=== PATIENT | female | born 1995 | race American Indian/Alaskan Native ===

== ENCOUNTER 2016-07-08 13:31 | Observation (INO) | payer MEDICAID, OTHER ==
[2016-07-08 14:19] LABS: Basophils % (Auto) 0.2 % (0.0-1.8); Eosinophils % (Auto) 0.3 % (0.0-4.3); Hematocrit 39.9 % (30.3-42.9); Hemoglobin 12.8 gm/dl (10.1-14.3); Mean Corpuscular HGB Conc 32 % (30-34); Mean Corpuscular Hemoglobin 28 pg (28-32); Mean Corpuscular Volume 86 fl (79-97); Platelet Count 282 K/mm3 (140-440); Red Blood Count 4.65 M/mm3 (3.65-5.03); Red Cell Distribution Width 14.1 % (13.2-15.2); White Blood Count 16.9 K/mm3 (4.5-11.0)
[2016-07-08 14:26] LABS: Alanine Aminotransferase 7 units/L (7-56); Albumin/Globulin Ratio 1.1 %; Alkaline Phosphatase 36 units/L (35-129); Anion Gap 18 mmol/L; BUN/Creatinine Ratio 11.66; Bilirubin,Total < 0.20 mg/dL (0.1-1.2); Blood Urea Nitrogen 7 mg/dL (7-17); Carbon Dioxide 24 mmol/L (22-30); Glucose 94 mg/dL (65-100); Lipase 14 units/L (13-60); Potassium 4.1 mmol/L (3.6-5.0); Sodium 139 mmol/L (137-145); Total Protein 7.6 g/dL (6.3-8.2)
[2016-07-08 15:05] LABS: Bilirubin,Urine NEG (Negative); Blood,Urine NEG (Negative); Ketones,Urine NEG (Negative); Leukocyte Esterase,Urine NEG (Negative); Mucus,Urine FEW /HPF; Nitrite,Urine NEG (Negative); Protein,Urine <15 mg/dL mg/dL (Negative); Urobilinogen,Urine < 2.0 mg/dL (<2.0); WBC,Urine < 1.0 /HPF (0.0-6.0)
--- NOTE | 2016-07-08 15:59 | Emergency Department Report ---
ED Abdominal Pain HPI - General Chief Complaint: Abdominal Pain Stated Complaint: HERNIA Time Seen by Provider: 07/08/16 15:47 Source: patient Mode of arrival: Ambulatory Limitations: No Limitations - History of Present Illness Initial Comments: Patient comes in the ER today with complaints of right lower quadrant abdominal pain. Patient states that she has had some discomfort in that area for several weeks now but today approximately 5-6 hours ago she started with a lot more intense pain in the right lower quadrant. Patient denies any vomiting, diarrhea but she does say that she feels like she is running a fever and she has not eaten anything all day. Patient denies any past history of abdominal surgeries. Patient has not taken anything for her symptoms as of yet. MD Complaint: abdominal pain - Related Data Previous Rx's Medication Instructions Recorded Last Taken Type Ibuprofen [Motrin] 400 mg PO TID PRN #15 tablet 03/27/13 Unknown Rx Allergies Allergy/AdvReac Type Severity Reaction Status Date / Time No Known Allergies Allergy Unverified 03/27/13 10:27 ED Review of Systems ROS: Stated complaint: HERNIA Other details as noted in HPI Constitutional: denies: chills, fever Eyes: denies: eye pain, eye discharge, vision change ENT: denies: ear pain, throat pain Respiratory: denies: cough, shortness of breath, wheezing Cardiovascular: denies: chest pain, palpitations Endocrine: no symptoms reported Gastrointestinal: abdominal pain, nausea. denies: vomiting, diarrhea, constipation, hematemesis, melena, hematochezia Genitourinary: denies: urgency, dysuria, hematuria, discharge, abnormal menses Musculoskeletal: denies: back pain, joint swelling, arthralgia Skin: denies: rash, lesions Neurological: denies: headache, weakness, paresthesias Psychiatric: denies: anxiety, depression Hematological/Lymphatic: denies: easy bleeding, easy bruising ED Past Medical Hx - Past Medical History Previous Medical History?: No - Surgical History Past Surgical History?: No - Social History Smoking Status: Never Smoker Substance Use Type: Non Opiate Pain - Medications Home Medications: Home Medications Medication Instructions Recorded Confirmed Last Taken Type Ibuprofen [Motrin] 400 mg PO TID PRN #15 tablet 03/27/13 Unknown Rx ED Physical Exam - General Limitations: No Limitations General appearance: alert, in no apparent distress - Head Head exam: Present: atraumatic, normocephalic - Eye Eye exam: Present: normal appearance - ENT ENT exam: Present: normal exam, normal orophraynx, mucous membranes moist - Neck Neck exam: Present: normal inspection - Respiratory Respiratory exam: Present: normal lung sounds bilaterally. Absent: respiratory distress, wheezes, rales, rhonchi - Cardiovascular Cardiovascular Exam: Present: regular rate, normal rhythm. Absent: systolic murmur, diastolic murmur, rubs, gallop - GI/Abdominal GI/Abdominal exam: Present: soft, tenderness (right lower quadrant abdominal tenderness), normal bowel sounds, hernia (small umbilical hernia, reducible and nontender). Absent: distended, guarding, rigid, organomegaly, pulsatile mass - Extremities Exam Extremities exam: Present: normal inspection - Back Exam Back exam: Present: normal inspection - Neurological Exam Neurological exam: Present: alert, oriented X3 - Psychiatric Psychiatric exam: Present: normal affect, normal mood - Skin Skin exam: Present: warm, dry, intact, normal color. Absent: rash ED Course Vital Signs 07/08/16 13:51 Temperature 98.7 F Pulse Rate 79 Respiratory 16 Rate Blood Pressure 133/95 O2 Sat by Pulse 100 Oximetry ED Medical Decision Making - Lab Data Result diagrams: 07/08/16 13:57 07/08/16 13:57 Lab Results 07/08/16 07/08/16 07/08/16 Range/Units 13:57 13:57 14:23 WBC 16.9 H (4.5-11.0) K/mm3 RBC 4.65 (3.65-5.03) M/mm3 Hgb 12.8 (10.1-14.3) gm/dl Hct 39.9 (30.3-42.9) % MCV 86 (79-97) fl MCH 28 (28-32) pg MCHC 32 (30-34) % RDW 14.1 (13.2-15.2) % Plt Count 282 (140-440) K/mm3 Lymph % (Auto) 13.7 (13.4-35.0) % [place] % (Auto) 7.0 (0.0-7.3) % Eos % (Auto) 0.3 (0.0-4.3) % Baso % (Auto) 0.2 (0.0-1.8) % Lymph # 2.3 (1.2-5.4) K/mm3 [place] # 1.2 H (0.0-0.8) K/mm3 Eos # 0.1 (0.0-0.4) K/mm3 Baso # 0.0 (0.0-0.1) K/mm3 Seg Neutrophils % 78.8 H (40.0-70.0) % Seg Neutrophils # 13.3 H (1.8-7.7) K/mm3 Sodium 139 (137-145) mmol/L Potassium 4.1 (3.6-5.0) mmol/L Chloride 101.0 (98-107) mmol/L Carbon Dioxide 24 (22-30) mmol/L Anion Gap 18 mmol/L BUN 7 (7-17) mg/dL Creatinine 0.6 L (0.7-1.2) mg/dL Estimated GFR > 60 ml/min BUN/Creatinine Ratio 11.66 % Glucose 94 (65-100) mg/dL Calcium 9.0 (8.4-10.2) mg/dL Total Bilirubin < 0.20 (0.1-1.2) mg/dL AST 10 (5-40) units/L ALT 7 (7-56) units/L Alkaline Phosphatase 36 (35-129) units/L Total Protein 7.6 (6.3-8.2) g/dL Albumin 4.0 (3.9-5) g/dL Albumin/Globulin Ratio 1.1 % Lipase 14 (13-60) units/L Urine Color Yellow (Yellow) Urine Turbidity Slightly-cloudy (Clear) Urine pH 8.0 H (5.0-7.0) Ur Specific [place] 1.018 (1.003-1.030) Urine Protein <15 mg/dl (Negative) mg/dL Urine Glucose (UA) Neg (Negative) mg/dL Urine Ketones Neg (Negative) mg/dL Urine Blood Neg (Negative) Urine Nitrite Neg (Negative) Ur Reducing Substances Not Reportable Urine Bilirubin Neg (Negative) Urine Ictotest Not Reportable Urine Urobilinogen < 2.0 (<2.0) mg/dL Ur Leukocyte Esterase Neg (Negative) Urine WBC (Auto) < 1.0 (0.0-6.0) /HPF Urine RBC (Auto) 1.0 (0.0-6.0) /HPF U Epithel Cells (Auto) 16.0 H (0-13.0) /HPF Urine Mucus Few /HPF Urine HCG, Qual Negative (Negative) - Radiology Data Radiology results: report reviewed Radiologist called and gave me verbal report of acute appendicitis over the phone. - Medical Decision Making Patient is nontoxic appearing and hemodynamically stable. Patient does have elevated white count noted on workup today. Due to patient's symptoms as well as patient's elevated white count, CT imaging ordered for further evaluation of patient's symptoms. CT imaging revealed acute appendicitis. Results reviewed and discussed the patient and mother in room. I discussed the case and treatment plan with attending Dr. Alondra M.D. Dr. Cantu called on-call surgeon Dr. Maxwell MD as well as placed orders for prophylactic IV antibiotics. At this time, patient still states that she is not in any pain and is not requesting any pain medications. I informed patient and mother that she will be admitted and that surgery is going to be required for her condition. Patient and mother are in agreement treatment plan. Critical care attestation.: If time is entered above; I have spent that time in minutes in the direct care of this critically ill patient, excluding procedure time. ED Disposition Clinical Impression: Abdominal pain, right lower quadrant, Acute appendicitis Disposition: OP ADMITTED IP TO THIS HOSP Is pt being admited?: Yes Does the pt Need Aspirin: No Condition: Stable Instructions: Abdominal Pain (ED) Referrals: PRIMARY CARE, [Primary Care Provider] - 3-5 Days
[2016-07-08] MEDS ORDERED: NACL ONE (16:25)
--- NOTE | 2016-07-08 16:56 | Cat Scan Report ---
CT of the abdomen and pelvis with IV contrast. Oral contrast was not used. Findings: The liver, spleen, pancreas, gallbladder, and kidneys are normal. The appendix is mildly enlarged and there is minimal periappendiceal mesenteric induration. The wall of the appendix appears slightly thickened and there is increased mural enhancement. Impression: Acute appendicitis.
[2016-07-08] MEDS ORDERED: NACL 0.9% 1000 ML 1,000 ML IV ONE (17:02)
--- NOTE | 2016-07-08 17:26 | Admit Criteria Form ---
Admission Criteria Documentation: ABDOMINAL PAIN Clinical Indications for Admission to Inpatient Care (Place 'X' for any and all applicable criteria): Admission is indicated for ANY ONE of the following(1)(2)(3)(4)(5): [X]I. Inpatient admission required rather than observation care (Also use Abdominal Pain: Observation Care, as appropriate) because of ANY ONE of the following: [X]a) Severe pain requiring acute inpatient management [ ]b) Identification of etiology/finding that requires inpatient care (eg, aortic dissection, free air) [ ]c) Absent bowel sounds with complete ileus(6) [ ]d) Suspected toxic megacolon [ ]e) Severe electrolyte abnormalities requiring inpatient care [ ]f) High fever or infection requiring inpatient admission as indicated by ANY ONE of following(7)(8): [ ] i) Appropriate outpatient or observational care antimicrobial treatment unavailable, not effective, or not feasible [ ] ii) Documented bacteremia [ ] iii) Temperature > 104.9 degrees F (oral) [ ] iv) T >103.1 F (oral) or < 96.8 F(rectal) that does not respond to all emergency treatment measures [ ]g) Signs of intestinal obstruction [B] [ ]h) Hemodynamic instability [ ]i) IV fluid to replace significant ongoing losses (greater than 3 L/m2 per day) (12)(13) [ ]j) Percutaneous or open drainage (eg, abscess, biliary tract ) procedures [ ]k) Parenteral nutrition regimen that must be implemented on inpatient basis [ ]l) Other condition,treatment or monitoring requiring inpatient admission. [ ]II. Peritoneal signs present [X]III. Surgery needed that cannot be performed on an ambulatory basis. [X]IV. Evaluation requires patient to not eat or drink for extended period ( eg, more than 24 hours). [ ]V. Contraindications and/or Inappropriate clinical situations for Observational Care in patients with abdominal pain, when ANY ONE of the following is required: [ ]a) Thorough evaluation is required to prevent catastrophic events due to delays in diagnosing (e.g.Mesenteric ischemia) 1,3 [ ]b) Patient with severe pathology or with chronic symptoms unlikely to improve in the ED stay (3) [ ]. General contraindications and/or Inappropriate clinical situations for Observational Care in patients with abdominal pain, when ANY ONE of the following is required: [ ]a) Prediction of prolongation of LOS based on ANY ONE of the following may be considered as a contraindication for observational care 2, 3, 4, 5, 6, 7, 8, 9, 10, 11 [ ]i) Age > 65 yrs. [ ]ii) Patient arriving by ambulance [ ]iii) Patient with high acuity [ ]iv) Patient requiring vital sign monitoring [ ]v) Patient on IV medication [ ]b) Systolic blood pressures 180mmHg 3,12 [ ]c) Patient with altered mental status including delirium and other alteration of consciousness, (3) [ ]d) Patient whose discharge disposition will be to a fdc home or rehabilitation home should not be managed in Emergency Department Observation Unit. CMS rule requires 3 days hospital stay before such placement.3,13 [ ]e) Patient with failure to thrive due to broad array of etiologies 3,16,17 [ ]f) Inability to ambulate 3,14 Extended stay beyond goal length of stay may be needed for(2)(3): [ ]a) Persistent abdominal pain with suspected intra-abdominal process [ ]b) Diagnosed condition requiring continued stay (e.g., pancreatitis, complicated diverticulitis) [ ]c) Surgery (e.g., colectomy) The original [facility] content created by [employer] has been revised. The portions of the content which have been revised are identified through the use of italic text or in bold, and [facility] has neither reviewed nor approved the modified material.All other unmodified content is copyright [employer]. Please see references footnoted in the original [facility] edition 2016 Admission Criteria Met: Yes
[2016-07-08] MEDS ORDERED: SUBLIMAZE ONE (17:47)
[2016-07-08] MEDS ORDERED: ZEMURON IV ONE (17:47)
[2016-07-08] MEDS ORDERED: XYLOCAINE MPF 2% ONE (17:47)
[2016-07-08] MEDS ORDERED: DECADRON ONE (17:47)
[2016-07-08] MEDS ORDERED: ZOFRAN ONE (17:47)
[2016-07-08] MEDS ORDERED: QUELICIN ONE (17:47)
[2016-07-08] MEDS ORDERED: DIPRIVAN 10 MG/ML IV ONE (17:48)
[2016-07-08] MEDS ORDERED: NACL 0.9% 1000 ML 1,000 ML ONE (18:15)
[2016-07-08] MEDS ORDERED: PEPCID IV ONE (18:15)
--- NOTE | 2016-07-08 18:15 | Anesthesia Consultation ---
Anesthesia Consult and Med Hx Date of service: 07/08/16 - Airway Anesthetic Teeth Evaluation: Good, Chipped (upper front right tooth) ROM Head & Neck: Adequate Mental/Hyoid Distance: Adequate Mallampati Class: Class I Intubation Access Assessment: Good - Pulmonary Exam CTA: Yes - Cardiac Exam Cardiac Exam: RRR - Pre-Operative Health Status ASA Pre-Surgery Classification: ASA1 (Admitted to smoking marijuana 1 day ago.) , Emergency (Admits to smoking marijuana yesterday.) Proposed Anesthetic Plan: General
[2016-07-08] MEDS ORDERED: REGLAN ONE (18:16)
[2016-07-08] MEDS ORDERED: VERSED ONE (18:16)
--- NOTE | 2016-07-08 18:16 | Anesthesia Day of Surgery ---
Anesthesia Day of Surgery - Day of Surgery Patient Examined: Yes Patient H&P Reviewed: Yes Patient is NPO: Yes
[2016-07-08] MEDS ORDERED: ZOFRAN IV PRN ×2 (18:25→19:34)
[2016-07-08] MEDS ORDERED: DILAUDID IV PRN (18:25)
[2016-07-08] MEDS ORDERED: MARCAINE 0.5% 30 ML INFILTRATI ONE (18:33)
[2016-07-08] MEDS ORDERED: XYLOCAINE 1% 20 mL ONE (18:34)
[2016-07-08] MEDS ORDERED: MARCAINE 0.5% INFILTRATI ONE (18:48)
[2016-07-08] MEDS ORDERED: XYLOCAINE 1% 20 mL INFILTRATI ONE (18:48)
--- NOTE | 2016-07-08 18:48 | Post Anesthesia Evaluation ---
- Post Anesthesia Evaluation Patient Participated: Yes Airway Patent: Yes Stable Respiratory Function: Yes Nausea/Vomiting: No Temp > 96.8F: Yes Pain Manageable: Yes Adequeate Hydration: Yes Anesthesia Complications: No Block Receding Appropriately: Not Applicable Patient on Ventilator: No
[2016-07-08] MEDS ORDERED: ANCEF/STERILE WATER 2 GM/20 ML 2 GM/20 ML SYRINGE IV ONE (18:51)
[2016-07-08] MEDS ORDERED: TORADOL ONE (19:17)
--- NOTE | 2016-07-08 19:30 | Post Operative Note ---
Pre-op diagnosis: acute appendicitis Post-op diagnosis: same Findings: acute appendicitis Procedure: Laparoscopic appendectomy Anesthesia: GETA Surgeon: MATHEW FLORES Estimated blood loss: none Pathology: list (appendix) Condition: stable Disposition: floor
[2016-07-08] MEDS ORDERED: TYLENOL PO PRN (19:34)
[2016-07-08] MEDS ORDERED: MILK OF MAGNESIA PO PRN (19:34)
[2016-07-08] MEDS ORDERED: DULCOLAX PR PRN (19:34)
[2016-07-08] MEDS ORDERED: NORCO 5/325 PO PRN (19:34)
--- NOTE | 2016-07-08 19:34 | History and Physical Report ---
History of Present Illness Date of examination: 07/08/16 Chief complaint: abd pain History of present illness: 20 year old female with 12-24 hour hx abd pain, elevated WBC, CT abd pelvis positive for acute appendicitis. Past History Past Surgical History: No surgical history Social history: no significant social history Medications and Allergies Allergies Allergy/AdvReac Type Severity Reaction Status Date / Time No Known Allergies Allergy Unverified 03/27/13 10:27 Home Medications Medication Instructions Recorded Confirmed Last Taken Type Ibuprofen [Motrin] 400 mg PO TID PRN #15 tablet 03/27/13 Unknown Rx Active Meds: Active Medications Hydromorphone HCl (Dilaudid) 0.5 mg IV Q10MIN PRN PRN Reason: Pain , Severe (7-10) Stop: 07/08/16 23:59 Review of Systems - Gastrointestinal abdominal pain, nausea Exam Vital Signs Temp Pulse Resp BP Pulse Ox 98.7 F 79 16 133/95 100 07/08/16 13:51 07/08/16 13:51 07/08/16 13:51 07/08/16 13:51 07/08/16 13:51 - General physical appearance Positive: no distress - Eyes Positive: PERRL, normal occular movement - ENT Positive: normal pinna, normal nares, normal mucosa, no hearing loss, no congestion - Neck Positive: no masses, no bruits, trachea midline, no venous distension - Respiratory Positive: normal expansion, normal respiratory effort, clear to auscultation - Cardiovascular Rhythm: regular Heart Sounds: Present: S1 & S2. Absent: rub, click - Extremities Extremities: no ischemia Peripheral Pulses: within normal limits - Breasts Breasts: normal - Abdomen Abdomen: Present: tender (tender to deep palpation RLQ, no rebound or guarding) Hernia: none - Neurologic Neurologic: alert and oriented to time, place and person, motor strength and sensation are grossly intact - Psychiatric Psychiatric: appropriate mood/affect, intact judgment & insight Results - Labs 07/08/16 13:57 07/08/16 13:57 Abnormal lab results 07/08/16 07/08/16 07/08/16 Range/Units 13:57 13:57 14:23 WBC 16.9 H (4.5-11.0) K/mm3 [place] # 1.2 H (0.0-0.8) K/mm3 Seg Neutrophils % 78.8 H (40.0-70.0) % Seg Neutrophils # 13.3 H (1.8-7.7) K/mm3 Creatinine 0.6 L (0.7-1.2) mg/dL Urine pH 8.0 H (5.0-7.0) U Epithel Cells (Auto) 16.0 H (0-13.0) /HPF Diabetes panel 07/08/16 Range/Units 13:57 Sodium 139 (137-145) mmol/L Potassium 4.1 (3.6-5.0) mmol/L Chloride 101.0 (98-107) mmol/L Carbon Dioxide 24 (22-30) mmol/L BUN 7 (7-17) mg/dL Creatinine 0.6 L (0.7-1.2) mg/dL Glucose 94 (65-100) mg/dL Calcium 9.0 (8.4-10.2) mg/dL AST 10 (5-40) units/L ALT 7 (7-56) units/L Alkaline Phosphatase 36 (35-129) units/L Total Protein 7.6 (6.3-8.2) g/dL Albumin 4.0 (3.9-5) g/dL Calcium panel 07/08/16 Range/Units 13:57 Calcium 9.0 (8.4-10.2) mg/dL Albumin 4.0 (3.9-5) g/dL Pituitary panel 07/08/16 Range/Units 13:57 Sodium 139 (137-145) mmol/L Potassium 4.1 (3.6-5.0) mmol/L Chloride 101.0 (98-107) mmol/L Carbon Dioxide 24 (22-30) mmol/L BUN 7 (7-17) mg/dL Creatinine 0.6 L (0.7-1.2) mg/dL Glucose 94 (65-100) mg/dL Calcium 9.0 (8.4-10.2) mg/dL Adrenal panel 07/08/16 Range/Units 13:57 Sodium 139 (137-145) mmol/L Potassium 4.1 (3.6-5.0) mmol/L Chloride 101.0 (98-107) mmol/L Carbon Dioxide 24 (22-30) mmol/L BUN 7 (7-17) mg/dL Creatinine 0.6 L (0.7-1.2) mg/dL Glucose 94 (65-100) mg/dL Calcium 9.0 (8.4-10.2) mg/dL Total Bilirubin < 0.20 (0.1-1.2) mg/dL AST 10 (5-40) units/L ALT 7 (7-56) units/L Alkaline Phosphatase 36 (35-129) units/L Total Protein 7.6 (6.3-8.2) g/dL Albumin 4.0 (3.9-5) g/dL Assessment and Plan Acute appendicitis, will admit, NPO, iv fluids, iv antibiotics, lap appendectomy.
[2016-07-08] MEDS ORDERED: ROBINUL ONE (19:42)
[2016-07-08] MEDS ORDERED: NEOSTIGMINE ONE (19:42)
[2016-07-08] MEDS ORDERED: NACL 0.9% 1000 ML 1,000 ML IV SCH (20:00)
[2016-07-08] MEDS: ZOSYN/NS 4.5GM/100ML 4.5 GM/100 ML VIAL IV SCH (23:00)
[2016-07-09] MEDS: MORPHINE IV PRN ×2 (00:40→08:33)
--- NOTE | 2016-07-09 01:20 | Operative Report ---
PREOPERATIVE DIAGNOSIS: Acute appendicitis confirmed on CT of the abdomen. POSTOPERATIVE DIAGNOSIS: Acute appendicitis confirmed on CT of the abdomen. OPERATIVE FINDINGS: Compatible with acute appendicitis with no abscess or evidence of perforation. PROCEDURE: Laparoscopic appendectomy. ANESTHESIA: General. SURGEON: Luis Arreola MD BLOOD LOSS: None. PATHOLOGY: Consisted of the appendix, which was sent for permanent pathology. CONDITION: Stable. DISPOSITION: To the floor. DESCRIPTION OF PROCEDURE: After informed consent, the patient was brought to the operating room. She received IV antibiotics and had compression stockings in place. She was induced under general anesthesia and then sterilely prepped and draped for standard laparoscopic appendectomy. A skin wheal was raised in the right mid quadrant lateral to the epigastrics with 1% lidocaine mixed with 0.5% Marcaine and then a small incision was made with 11 scalpel. The Veress needle was introduced, tested and found to be satisfactorily placed. Intraabdominal cavity was insufflated to acceptable parameters with CO2. Veress needle was removed and under direct visualization with a 30-degree 5 mm camera, a 5 mm port was placed. All the other ports performed under direct visualization with the operative laparoscope. In a like fashion, a 12 mm port was placed in the subumbilical position and another 5 mm port in the left mid quadrant lateral to the epigastrics and the patient was positioned properly. The operative findings were compatible with early acute appendicitis. Traction was placed on the tip of the appendix with Guzman and Geck forceps. I used the LigaSure device and basically took down some of the peritoneal reflection, which the appendix was attached too. Then, I took down the mesoappendix and there was excellent hemostasis. I used curved [place] to dissect the mesoappendix away from the appendix. Then, once this was accomplished, I fired an endoluminal vascular stapler flush with the cecum at the base of the appendix and across the base of the mesoappendix. I removed it in a specimen bag and then I carefully examined the area at the appendiceal artery stump and the staple line. There was no significant bleeding. I locally irrigated with Ne[place]um[place]t irrigation system until clear. I examined the area again and there was no evidence of bleeding. Then, I removed the ports under direct visualization of the scope. There was no bleeding from the anterior abdominal wall. I closed the 12 mm port site with 0 Vicryl UR-6 needle with interrupted closure. I used 4-0 Monocryl for the skin with Dermabond. The patient was hemodynamically stable throughout the procedure. The blood loss was essentially 0. The specimen was sent for permanent pathology. The sponge and needle count was correct x 2 at the completion of the procedure. JOB# [id number] MARYSOL/NADEEM FRAGA
[2016-07-09 05:23] LABS: Basophils % (Auto) 0.2 % (0.0-1.8); Eosinophils % (Auto) 0.2 % (0.0-4.3); Hematocrit 35.9 % (30.3-42.9); Hemoglobin 11.8 gm/dl (10.1-14.3); Mean Corpuscular HGB Conc 33 % (30-34); Mean Corpuscular Hemoglobin 28 pg (28-32); Mean Corpuscular Volume 85 fl (79-97); Platelet Count 247 K/mm3 (140-440); Red Blood Count 4.24 M/mm3 (3.65-5.03); Red Cell Distribution Width 14.2 % (13.2-15.2); White Blood Count 13.2 K/mm3 (4.5-11.0)
[2016-07-09] MEDS: ZOSYN/NS 4.5GM/100ML 4.5 GM/100 ML VIAL IV SCH (06:19)
[2016-07-09 08:32] VITALS: BP 123/89
--- NOTE | 2016-07-09 11:11 | Discharge Summary ---
Providers - Providers Date of Admission: 07/08/16 19:34 Date of discharge: 07/09/16 Attending physician: MATHEW FLORES Primary care physician: HOT CELL TECHNICIAN Hospitalization Condition: Good Pertinent studies: CT abd pelvis Procedures: lap appendectomy Hospital course: Pt admitted, taken to OR for uneventful lap appe, did well, VSS AF tolerated diet, labs OK, sent home, wounds ok, tolerated diet. Disposition: DISCHARGED TO HOME OR SELFCARE Time spent for discharge: 20min - Discharge Diagnoses (1) Acute appendicitis Status: Acute Qualifiers: Acute appendicitis type: A Core Measure Documentation - Palliative Care Palliative Care/ Comfort Measures: Not Applicable - Core Measures Any of the following diagnoses?: none Exam - Constitutional Vitals: Temp Pulse Resp BP Pulse Ox 98.4 F 88 16 123/89 100 07/09/16 08:31 07/09/16 08:31 07/09/16 08:31 07/09/16 08:31 07/09/16 08:31 General appearance: Present: no acute distress - EENT Eyes: Present: PERRL ENT: hearing intact, clear oral mucosa - Neck Neck: Present: supple, normal ROM - Respiratory Respiratory effort: normal - Cardiovascular Heart Sounds: Present: S1 & S2. Absent: rub, click - Extremities Extremities: pulses symmetrical, No edema Peripheral Pulses: within normal limits - Abdominal General gastrointestinal: Present: soft, other (incisions OK) - Psychiatric Psychiatric: appropriate mood/affect, intact judgment & insight Plan Activity: advance as tolerated Weight Bearing Status: Full Weight Bearing Diet: regular Follow up with: PRIMARY CARE, [Primary Care Provider] - 3-5 Days Prescriptions: HYDROcodone/APAP 5-325 [[place] 5-325 mg TAB] 2 each PO Q6H PRN #30 tablet PRN Reason: Pain, Moderate (4-6)
--- NOTE | 2016-07-09 21:06 | Discharge Summary ---
DISCHARGE DIAGNOSIS: Acute appendicitis. PROCEDURES: The patient underwent CT scan of the abdomen and pelvis and a laparoscopic appendectomy uneventfully. HOSPITAL COURSE: See my history and physical for details, but basically this is a 20-year-old female presented to the hospital with abdominal pain and elevated white count. A CT scan of the abdomen and pelvis demonstrated findings consistent with acute appendicitis. The patient received IV fluids, antibiotics, was taken to the operating room for an uneventful laparoscopic appendectomy. She was admitted, tolerated clear liquids, received postoperative antibiotics. By the next day, she was afebrile. Her wounds were healing beautifully. She was ambulatory, tolerating clear liquids, afebrile. Her H and H were stable at 11.8 and 35.9. Her white count was trending down very nicely. She was told to not to shower daily with soap and water on the wounds, not to lift anything more than 30 pounds for 2 weeks. I will see her in my office in followup in 1 week. She was given prescription of oral pain medicine. JOB# [id number] MARYSOL/NADEEM
== END 2016-07-09 14:30 | disposition home or self-care (01) ==
LOC: ED 13:31 → 2B-SURG 19:34
PROVIDERS: ADMIT Surgery; ATTEND Surgery
DX: K35.80 Unspecified acute appendicitis (principal); D72.829 Elevated white blood cell count, unspecified
CPT/HCPCS: 36415; 44970; 74177; 80053; 81001; 81025; 83690; 85025; 88304; 96365; 96375; 96376; 99285; G0378; J0330; J0690; J1170; J1885; J2250; J2270; J2405; J2543; J2704; J2710; J2765; J3010; J7030; Q9967; 96374; J1100